=== PATIENT | female | born 1985 | race Two or more races ===

== ENCOUNTER 2016-06-21 13:05 | Inpatient (IN) | payer OTHER ==
--- NOTE | 2016-06-21 14:16 | HP ---
Past Medical History - Admission Chief Complaint: leaking fluid History of Present Illness: 30 y/o with SIUP at 40 weeks here with complaints of leaking fluid and contractions. The patient has a complicated by a bilateral gluteal abscess which has been followed by surgery as an outpatient. The patient has had the abscess drained 3 times, most recently last week. The patient currently is on Augmentin and Flagyl for the wound. The patient states she started noting LOF at 10 am with some spotting. Pt also with some cramping but no significant pain. No other complaints. History Source: Patient, Medical Record Limitations to Obtaining History: No Limitations - Past Medical History Cardiovascular: No: AFIB, CAD, HTN Pulmonary: No: Asthma, COPD Gastrointestinal: No: GERD Hepatobiliary: No: Hepatitis B, Hepatitis C Renal/: No: UTI Reproductive: No: Ectopic , Endometriosis, Polycystic Ovary Syndrome ...: 1 ...Para: 0 ...Term: 0 ...: 0 ...Spon : 0 ...Induced : 0 ...Multiple Gestation: 0 ... Weeks Gestation by Dates: 40 Heme/Onc: No: Anemia Infectious Disease: No: HIV, MRSA (pt denies MRSA - no culture of gluteal abscess available at this tiem), STD's Psych: No: Bipolar, Depression ENT: No: Allergic Rhinitis Endocrine: No: Hyperthyroidism, Hypothyroidism - Past Surgical History Past Surgical History: Yes: None Hx Myomectomy: No Hx Transabdominal Cerclage: No - Smoking History Smoking history: Never smoked - Alcohol/Substance Use Hx Alcohol Use: No History of Substance Use: reports: None - Social History ADL: Independent History of Recent Travel: No Home Medications - Allergies Allergies/Adverse Reactions: Allergies Allergy/AdvReac Type Severity Reaction Status Date / Time No Known Allergies Allergy Verified 06/21/16 14:07 - Home Medications Home Medications: Ambulatory Orders Ibuprofen [Motrin -] 400 mg PO TID #21 tablet 02/28/15 Review of Systems - Review of Systems Constitutional: reports: No Symptoms Eyes: reports: No Symptoms HENT: reports: No Symptoms Neck: reports: No Symptoms Cardiovascular: reports: No Symptoms Respiratory: reports: No Symptoms Gastrointestinal: reports: No Symptoms Genitourinary: reports: No Symptoms Breasts: reports: No Symptoms Reported Musculoskeletal: reports: No Symptoms Integumentary: reports: No Symptoms Neurological: reports: No Symptoms Endocrine: reports: No Symptoms Hematology/Lymphatic: reports: No Symptoms Psychiatric: reports: No Symptoms Physical Exam - Maternity Constitutional: Yes: Well Nourished, No Distress, Calm Eyes: Yes: Conjunctiva Clear, EOM Intact HENT: Yes: Atraumatic, Normocephalic Neck: Yes: Supple, Trachea Midline Cardiovascular: Yes: Regular Rate and Rhythm - Abdominal Exam/OB Fundal Height: 38 Number of Fetuses: Single Presentation: Vertex Contractions: Yes Regularity: Regular Intensity: Mild/Mod Monitor Mode: External Heart Rate (range): 155 Category: I Accelerations: Uniform Decelerations: None - Vaginal Exam/OB Vaginal Bleediing: Yes, Light Speculum Exam: Yes (+fluid in vaginal vault, +nitrizine) Dilatation (cm): 3 Effacement (%): 70 Amniotic Membrane Status: Ruptured Amniotic Fluid: Yes: Clear Presentation: Vertex/Position Station: -3 - Physical Exam Edema: No Integumentary: Yes: Other (bilateral gluteal abscesses noted approx 3-4cm from perineum bilaterally) Psychiatric: Yes: Alert, Oriented Hemorrhage Risk Assessment - Risk Factors Medium Risk Factors: Yes: None High Risk Factors: Yes: None Risk Score: 1 Risk Level: Medium Risk Problem List - Problems (1) Gluteal abscess Code(s): L02.31 - CUTANEOUS ABSCESS OF BUTTOCK (2) Spontaneous rupture of amniotic membranes Code(s): QUU1245 - (3) Rupture of membranes with clear amniotic fluid Code(s): O42.019 - PRETRM NABEEL ROM, ONSET LABOR W/N 24 HOURS OF RUPT, UNSP TRI (4) Active labor at term Code(s): IRD1182 - Assessment/Plan 30 y/o with SIUP at 39 weeks in labor - AFVSS - FHTs cat 1 - labor and SROM, for expectant management - gluteal abscess - discussed with patient risks of possible laceration which may extend into the gluteal abscess, pt aware of risks. Pt does not desire primary delivery to prevent this complication. Will plan for normal . - GBS negative
[2016-06-21] MEDS ORDERED: BUTORPHANOL TARTRATE 1 MG/ML VIAL IVPB ONE (14:18)
[2016-06-21] MEDS ORDERED: ELECTROLYTE-148 SOLN 1,000 ML IV SCH (14:30)
[2016-06-21 14:43] VITALS: BMI 30.2
[2016-06-21] MEDS ORDERED: TUBERCULIN PPD 5 TU/0.1ML SYRINGE (IN PATIENT USE ONLY) ID ONE (15:00)
[2016-06-21 15:08] LABS: BASOPHIL 0.4 % (0-2.0); EOSINOPHIL 0.1 % (0-4.5); MCH 27.7 pg (25.7-33.7); MCHC 32.6 g/dl (32.0-36.0); MEAN CELL VOLUME 84.9 fl (80-96); MEAN PLT VOLUME 8.4 fl (7.5-11.1); NEUTROPHILS 82.4 % (42.8-82.8); PLATELET COUNT 273 K/MM3 (134-434); RDW 12.6 % (11.6-15.6); WHITE BLOOD COUNT 14.8 K/mm3 (4.0-10.0)
[2016-06-21 15:21] LABS: INR 1.14 (0.82-1.09); PROTHROMBIN TIME (PATIENT) 12.6 SEC (9.98-11.88)
[2016-06-21 15:32] LABS: CALCIUM 8.9 mg/dL (8.5-10.1); COCKROFT - GAULT 184.2545; CREATININE 0.5 mg/dL (0.55-1.02)
[2016-06-21] MEDS ORDERED: OXYTOCIN 15 UNITS/ LR 250 ML 250 ML IVPB SCH (19:45)
[2016-06-21] MEDS ORDERED: metroNIDAZOLE 250 MG TABLET PO SCH (22:00)
[2016-06-22] MEDS ORDERED: FENTANYL/BUPIVACAINE/NS/PF - PCEA - 50 ML DISP.SYRIN EP SCH (02:00)
--- NOTE | 2016-06-22 08:07 | PN ---
Ante-Partal Exam - Subjective Subjective: Pt seen/evaluated and feeling urge to push. Vital Signs: Vital Signs Temperature 98.4 F 06/22/16 07:00 Pulse Rate 71 06/22/16 06:45 Respiratory Rate 20 06/22/16 06:45 Blood Pressure 121/71 06/22/16 06:45 O2 Sat by Pulse Oximetry (%) 96 06/22/16 00:45 Headache: No Visual changes: No Right upper quadrant pain: No - Contractions Contractions: Yes Regularity: Regular Intensity: Strong Monitor Mode: External - Exam during Labor Heart Rate: 150 Variability: Moderate Category: I Monitor Decelerations: None Exam: Vaginal Dilatation (cm): 10 Effacement (%): 100 Amniotic Membrane Status: Ruptured Nitrazine Test: Positive Amniotic Fluid: Clear Presentation: Vertex Station: 0 - Assessment/Plan Assessment/Plan: Begin pushing at this time.
[2016-06-22] MEDS: AMOX TR/POT CLAV 875MG/125MG TABLETS (FP) PO SCH ×2 (09:20→17:41)
--- NOTE | 2016-06-22 09:32 | PN ---
Delivery - Delivery Vaginal Delivery: No Problems, Spontaneous Episiotomy/Laceration: Left Mediolateral, 2nd degree EBL (cc): 400 Delivery, Single - Stages of Labor Date of Delivery: 06/22/16 Time of Delivery: 09:03 Date Placenta Delivered: 06/22/16 Time Placenta Delivered: 09:06 Placenta: Yes: Spontaneous - Condition of Mortgage Advisor/Calculation Reviewer Present: Yes Name: Hugo Burgos Gender: Female Position: Left, OA - 1 Minute Total Score: 9 5 Minutes Total Score: 9 - Jackson Feeding Plan Initial Plan: Elected not to breastfeed exclusively throughout hospitalization Remarks - Remarks Remarks: Uncomplicated of baby girl from MO position - restituted ROXY tight nuchal card noted, clamped and cut at perineum left mediolateral episiotomy cut to avoid right gluteal abscess anterior shouilder (left) delivered with ease along with remainder of 2nd degree extension/laceration noted - repaired with 2-0 chromic suture in usual fashion with excellent hemostatic and cosmetic result EBL 400cc due to vaginal bleeding from laceration good uterine tone after delivery oxytocin running mom stable baby to well baby nursery sponge and needle count correct after delivery
[2016-06-22] MEDS ORDERED: oxyCODONE HCL 5 MG TABLET PO PRN (09:33)
[2016-06-22] MEDS ORDERED: WITCH HAZEL 50% (TUCKS) 40 PAD/JAR PAD TP PRN (09:33)
[2016-06-22] MEDS ORDERED: BISACODYL 10 MG SUPP.RECT RC PRN (09:33)
[2016-06-22] MEDS ORDERED: BENZOCAINE 20% 57 GM BOTTLE TP PRN (09:33)
[2016-06-22] MEDS ORDERED: IBUPROFEN 600 MG TABLET (FP) PO PRN (09:33)
[2016-06-22] MEDS ORDERED: METHYLERGONOVINE MALEATE 0.2 MG/1 ML AMP IM PRN (09:33)
[2016-06-22] MEDS ORDERED: BENZOCAINE 28 GM HEMORRHOIDAL OINTMENT TP PRN (09:33)
[2016-06-22] MEDS ORDERED: OXYTOCIN 20 UNITS in 0.9% NS 1,000 ML IV SCH (09:45)
[2016-06-22 09:49] LABS: ARTERIAL BLOOD GAS BASE EXCESS -8.8 meq/l (-2-2); ARTERIAL BLOOD GAS HCO3 19.8 meq/L (22-26); ARTERIAL BLOOD GAS pH 7.19 (7.35-7.45)
[2016-06-22] MEDS: ACETAMINOPHEN 325 MG TABLET (FP) PO PRN ×2 (09:50→19:01)
[2016-06-22 09:52] LABS: LPM/O2% 21%; PT. ON O2? NO; TYPE OF O2 ROOM AIR
[2016-06-22 09:53] LABS: ARTERIAL BLOOD GAS PO2 20.1 mmHg (80-100)
[2016-06-22 09:54] LABS: VENOUS PH 7.27 (7.32-7.42)
[2016-06-22] MEDS: PRENATAL VITAMINS W/ FOLIC ACID TABLET (FP) PO SCH (13:10)
[2016-06-22 14:13] LABS: URINE APPEARANCE CLOUDY; URINE BILIRUBIN NEGATIVE (NEGATIVE); URINE COLOR AMBER; URINE GLUCOSE (UA) 2+ (NEGATIVE); URINE KETONE 1+ (NEGATIVE); URINE LEUK ESTERASE NEGATIVE (NEGATIVE); URINE NITRITE NEGATIVE (NEGATIVE); URINE UROBILINOGEN NEGATIVE E.U./dl (0.2-1.0)
[2016-06-22 14:34] LABS: URINE BLOOD 3+ (NEGATIVE); URINE PROTEIN 2+ (NEGATIVE)
[2016-06-22 15:34] LABS: URINE MUCUS FEW; URINE RBC 4146 /hpf (0-3); URINE WBC 54 /hpf (3-5); YEAST MANY
[2016-06-23 08:34] LABS: BASOPHIL 0.2 % (0-2.0); EOSINOPHIL 0.5 % (0-4.5); MCH 28.2 pg (25.7-33.7); MCHC 32.8 g/dl (32.0-36.0); MEAN CELL VOLUME 85.9 fl (80-96); MEAN PLT VOLUME 7.8 fl (7.5-11.1); PLATELET COUNT 239 K/MM3 (134-434); RDW 12.9 % (11.6-15.6); WHITE BLOOD COUNT 15.2 K/mm3 (4.0-10.0)
[2016-06-23] MEDS: ACETAMINOPHEN 325 MG TABLET (FP) PO PRN (09:43)
[2016-06-23] MEDS: AMOX TR/POT CLAV 875MG/125MG TABLETS (FP) PO SCH ×2 (09:43→18:00)
[2016-06-23] MEDS: PRENATAL VITAMINS W/ FOLIC ACID TABLET (FP) PO SCH (09:43)
--- NOTE | 2016-06-23 20:14 | PN ---
Post Progress Note - Subjective Subjective: 30 yo Para 1, seen and evaluated. She has no complaints. Type of Delivery: Vital Signs: Vital Signs Temperature 98.2 F 06/23/16 14:00 Pulse Rate 96 H 06/23/16 10:00 Respiratory Rate 18 06/23/16 10:00 Blood Pressure 100/65 06/23/16 10:00 O2 Sat by Pulse Oximetry (%) 100 06/22/16 10:05 Breast Exam: Yes: Soft Uterus: Yes: Fundus Firm Abdomen/GI: Yes: Abdomen soft, Tolerating PO Lochia: Yes: Rubra Lochia, amount: Moderate Extremities: Yes: Calves non-tender Perineum: Yes: Episiotomy Activity: Ambulating - Labs Labs: CBC WBC 15.2 K/mm3 (4.0-10.0) H 06/23/16 08:00 RBC 3.67 M/mm3 (3.60-5.2) 06/23/16 08:00 Hgb 10.3 GM/dL (10.7-15.3) L D 06/23/16 08:00 Hct 31.5 % (32.4-45.2) L D 06/23/16 08:00 MCV 85.9 fl (80-96) 06/23/16 08:00 MCHC 32.8 g/dl (32.0-36.0) 06/23/16 08:00 RDW 12.9 % (11.6-15.6) 06/23/16 08:00 Plt Count 239 K/MM3 (134-434) 06/23/16 08:00 MPV 7.8 fl (7.5-11.1) 06/23/16 08:00 Neutrophils % 77.0 % (42.8-82.8) 06/23/16 08:00 Lymphocytes % 17.1 % (8-40) D 06/23/16 08:00 Monocytes % 5.2 % (3.8-10.2) 06/23/16 08:00 Eosinophils % 0.5 % (0-4.5) D 06/23/16 08:00 Basophils % 0.2 % (0-2.0) 06/23/16 08:00 Assessment/Plan Status post vaginal delivery Stable Continue routine care
[2016-06-23] MEDS ORDERED: SENNOSIDES/DOCUSATE COMBO (SENNA PLUS) TABLET (UD) PO PRN (22:00)
[2016-06-24] MEDS: PRENATAL VITAMINS W/ FOLIC ACID TABLET (FP) PO SCH (09:08)
[2016-06-24] MEDS: AMOX TR/POT CLAV 875MG/125MG TABLETS (FP) PO SCH (09:08)
--- NOTE | 2016-06-24 09:55 | DS ---
Physical Exam-SUPERVISOR SAWMILL Vital Signs: Vital Signs Temperature 98.4 F 06/23/16 23:00 Pulse Rate 87 06/23/16 23:00 Respiratory Rate 18 06/23/16 23:00 Blood Pressure 105/65 06/23/16 23:00 O2 Sat by Pulse Oximetry (%) 100 06/22/16 10:05 Labs: CBC, BMP 06/23/16 08:00 06/21/16 14:40 Delivery - Delivery Vaginal Delivery: No Problems, Spontaneous Type of Anesthesia: Local, Epidural Episiotomy/Laceration: Left Mediolateral, 2nd degree EBL (cc): 400 Delivery, Single - Stages of Labor Date 1st Stage Initiatied: 06/21/16 Time 1st Stage Initiated: 22:00 Date 2nd Stage Initiated: 06/22/16 Time 2nd Stage Initiated: 07:30 Date of Delivery: 06/22/16 Time of Delivery: 09:03 Time Placenta Delivered: 09:06 Placenta: Yes: Spontaneous - Condition of Egg Tester/Machine Maintenance Mechanic Present: Yes Name: Hugo Burgos Infant Gender: Female Weight: 6 lb 6 oz Position: Left, OA Total Hours ROM (Hrs/Mins): 10 HOURS 51 MINUTES - 1 Minute Total Score: 9 5 Minutes Total Score: 8 - Feeding Plan Initial Plan: Elected not to breastfeed exclusively throughout hospitalization Discharge Summary Reason For Visit: LABOR Current Active Problems Active labor at term (Acute) Gluteal abscess (Acute) Rupture of membranes with clear amniotic fluid (Acute) Spontaneous rupture of amniotic membranes (Acute) Status post normal delivery (Acute) Procedures: Principal: normal vaginal delivery Hospital Course: Pt admitted to [facility] on 06/20/16 with ROM and early labor, patient underwent uncomplicated labor and normal spontaneous vaginal delivery. Please see delivery note for full details. Pt had chronic gluteal abscesses throughout , were stable at time of admission. Pt kept on antibiotics throughout hospital stay and culture of abscesses collected. Pt stable and discharged home in stable condition on post day 2 with instructions to follow up with surgeon for abscess and with child welfare social worker in 6 weeks for follow up. Condition: Good - Instructions Diet, Activity, Other Instructions: Physical activity Resume your normal everyday activity as tolerated no heavy lifting or exercise until seen by your surgeon. You may walk unlimited fiordaliza of and climb stairs. You may resume driving the car when you feel safe and comfortable behind the wheel. No sexual activity as instructed. Wound care If you have a bandage, leave it on, and keep dry for 48-72 hours. After that time discard the outer bandage. If they are tapes on the skin under the out of bandage leave them in place. They will peel off in the next 7 to 10 days. Do Not Peel them off. You may shower the day after surgery. If there are tapes present on the skin, you may shower over them. Diet There are no dietary restrictions. Eat healthy, high-fiber foods. Drink 6 to 8 glasses of liquid each day. This will assist in keeping your bowels are regular. Pain management You may take Tylenol or acetaminophen or Ibuprofen (for example, Motrin, Advil etc.) from my pain prescription medication is ordered should be taken as prescribed for moderate to severe pain. Call MD for any of the following: Severe pain not relieved by medication Fever of 101 or higher Excessive bleeding or drainage on dressing Inability to urinate Regular diet No douching, no sexual intercourse x 6 weeks Disposition: HOME - Home Medications Comprehensive Discharge Medication List: Ambulatory Orders Amoxicillin/Potassium Clav [Augmentin 875-125 Tablet] 1 each PO BID 06/21/16 Metronidazole [Flagyl -] 500 mg PO TID 06/21/16 Vitamins (Sjr) - 1 tab PO DAILY 06/21/16
[2016-06-24 10:26] VITALS: BP 115/71; PULSE 91; TEMP 98.3
== END 2016-06-24 13:00 | disposition home or self-care (01) | DRG 560 ==
LOC: JLDR 13:05 → J3W 06-22 12:37
PROVIDERS: ADMIT Obstetrics & Gynecology; ATTEND Obstetrics & Gynecology
PROC: 10E0XZZ Delivery of Products of Conception, External Approach (ICD-10-PCS; principal; 2016-06-21)
PROC: 0W8NXZZ Division of Female Perineum, External Approach (ICD-10-PCS; 2016-06-21)
PROC: 0KQM0ZZ Repair Perineum Muscle, Open Approach (ICD-10-PCS; 2016-06-21)
DX: O70.1 Second degree perineal laceration during delivery (principal); Z3A.40 40 weeks gestation of pregnancy; O26.893 Other specified pregnancy related conditions, third trimester; L02.31 Cutaneous abscess of buttock; Z37.0 Single live birth
CPT/HCPCS: 36415; 36600; 59409; 80048; 81003; 81015; 82803; 85025; 85610; 85730; 86593; 86850; 86900; 86901; 87070; 87186; 87205